=== PATIENT | female | born 1955 | race African-American/Black ===

== ENCOUNTER 2017-10-03 08:00 | Emergency (ER) | payer OTHER ==
[~2017-10-03 08:00] MED LIST: ALBU1AER INH; CARD180C5 PO; CLON.1 PO; DUONI INH; ENAL10TA7 PO; GLUCTAB PO; GUAI600 PO; IPRA0.02 INH; POTA-267 PO; PRED20 PO; ZITH250T PO
[2017-10-03 08:02] VITALS: BP 197/132; PULSE 93; RESP 14; TEMP 97.9; O2SAT 94
== END 2017-10-03 08:29 | disposition left against medical advice (07) ==
LOC: NED 08:00
DX: R06.09 Other forms of dyspnea (principal); Z53.21 Procedure and treatment not carried out due to patient leaving prior to being seen by health care provider
CPT/HCPCS: 99281